=== PATIENT | male | born 1950 | race Caucasian/White ===

== ENCOUNTER 2019-01-28 09:27 | Outpatient (CLI) | payer OTHER | END 2019-01-28 23:59 | disposition home or self-care (01) | LOC: STAR 09:27 | PROVIDERS: ATTEND Neurological Surgery | DX: Z01.818 Encounter for other preprocedural examination (principal); M48.061 Spinal stenosis, lumbar region without neurogenic claudication; R94.31 Abnormal electrocardiogram [ECG] [EKG] | CPT/HCPCS: 36415; 80053; 85025; 85610; 85730; 93005 ==

== ENCOUNTER 2019-02-11 08:54 | Inpatient (IN) | payer OTHER ==
[~2019-02-11] VITALS: Ht 172.7 cm; Wt 106.9 kg
[2019-02-12 14:09] VITALS: BP 112/72
== END 2019-02-12 15:36 | disposition home or self-care (01) | DRG 517 ==
LOC: OUT 08:54 → 4NOR 15:04 → OUT 15:15 → 4NOR 15:15 → DCLOUNGE 02-12 15:25
PROVIDERS: ADMIT Neurological Surgery; ATTEND Neurological Surgery
PROC: 01NB0ZZ Release Lumbar Nerve, Open Approach (ICD-10-PCS; principal; 2019-02-11)
DX: M48.061 Spinal stenosis, lumbar region without neurogenic claudication (principal); M54.16 Radiculopathy, lumbar region; E11.9 Type 2 diabetes mellitus without complications; N40.0 Benign prostatic hyperplasia without lower urinary tract symptoms; I11.9 Hypertensive heart disease without heart failure; G47.33 Obstructive sleep apnea (adult) (pediatric); Z79.01 Long term (current) use of anticoagulants; Z98.1 Arthrodesis status; Z87.891 Personal history of nicotine dependence; Z88.5 Allergy status to narcotic agent; Z82.49 Family history of ischemic heart disease and other diseases of the circulatory system; Z79.84 Long term (current) use of oral hypoglycemic drugs; Z79.899 Other long term (current) drug therapy
CPT/HCPCS: 36415; J3490; 82962; 85610; 85730; G0378; J0690; J1100; J1815; J2250; J2704; J2710; J3010; J3480; Q0162; J7120

== ENCOUNTER 2021-02-13 08:58 | Inpatient (IN) | payer MEDICARE, OTHER ==
[~2021-02-13] VITALS: Ht 170.2 cm; Wt 87.6 kg
[~2021-02-13 08:58] MED LIST: ALLO100T30 PO; ASPI325T17 PO; ATOR10TA PO; CARV-39 PO; CARV12.52 PO; CHOL100012 PO; CYAN500T18 PO; DOFE250C PO; EZET10TA70 PO; FERR324T18 PO; GABA600T7 PO; GLIP10TA13 PO; IBUP1TAB11 PO; LISI5TAB7 PO; MAGN420T PO; METF500T17 PO; NITR0.4T28 SL; NPH,100V SQ-INSULIN; OMEP40CA8 PO; PANT40TA6 PO; RIVA20TA PO; TYLENOL PM PO
--- NOTE | 2021-02-13 09:19 | NUR ---
TASK RN NOTE: PT PRESENTS TO ED WITH CONSTANT CP X2 DAYS AND EPIGASTRIC TENDERNESS ON PALPATION. PT DENIES TAKING ANY MEDICATIONS FOR CP. HX X3 CARDIAC STENTS.
[2021-02-13] MEDS ORDERED: ASPIRIN 81 MG TABLET CHEW ONE (09:27)
[2021-02-13] MEDS ORDERED: ASPIRIN 81 MG TABLET CHEW PO ONE (09:30)
[2021-02-13] MEDS ORDERED: SODIUM CHLORIDE FLUSH 10ML SYR IVF ONE (09:30)
[2021-02-13 09:56] LABS: BASOPHILS % (AUTO) 1 % (0-1); EOSINOPHILS % (AUTO) 5 % (1-7); LYMPHOCYTES % (AUTO) 25 % (22-44); MEAN CORPUSCULAR HEMOGLOBIN 31.5 pg (27.5-34.5); MEAN CORPUSCULAR HGB CONC 35.1 g/dL (33.2-36.2); MEAN PLATELET VOLUME 8.5 fL (7.4-10.4); MONOCYTES % (AUTO) 10 % (2-9); NEUTROPHILS % (AUTO) 59 % (42-75); PLATELET COUNT 143 x10^3/uL (130-400); RED BLOOD COUNT 4.71 x10^6/uL (4.38-5.82); RED CELL DISTRIBUTION WIDTH 13.4 % (9.4-14.8)
[2021-02-13 10:06] LABS: ALBUMIN 3.4 g/dL (3.4-5.0); ANION GAP 6 mmol/L (5-15); CHLORIDE 107 mmol/L (98-107)
[2021-02-13 10:11] LABS: ALANINE AMINOTRANSFERASE 36 U/L (12-78); ALKALINE PHOSPHATASE 72 U/L (45-117); CREATININE 0.81 mg/dL (0.7-1.3); TOTAL PROTEIN 6.8 g/dL (6.4-8.2); TROPONIN I < 0.015 ng/mL (0.000-0.045)
[2021-02-13] MEDS ORDERED: SODIUM CHLORIDE FLUSH 10ML SYR IVF PRN (11:00)
--- NOTE | 2021-02-13 11:20 | NUR ---
called at 1120 for juan pablo for floor bed transfer. hernando almeida to call back to ed for report
[2021-02-13] MEDS ORDERED: HEPARIN 5,000 UNITS/ML, 1ML SQ SCH (11:30)
[2021-02-13] MEDS ORDERED: MAALOX/HYOSCYAMINE/LIDOCAINE 45 ML BTL PO ONE (11:30)
[2021-02-13] MEDS ORDERED: NITROGLYCERIN SINGLE TAB 0.4 MG SL PRN (11:30)
[2021-02-13] MEDS ORDERED: ONDANSETRON ODT 4 MG PO PRN (11:30)
[2021-02-13] MEDS ORDERED: ACETAMINOPHEN 325 MG TABLET PO PRN (11:30)
[2021-02-13] MEDS ORDERED: ONDANSETRON 2MG/ML, 2ML IVPush PRN (11:30)
--- NOTE | 2021-02-13 11:37 | NUR ---
REPORT CALLED TO DANNY PRYOR, PT TO BE TRANSPORTED VIA TECH TO FLOOR
[2021-02-13 12:11] LABS: TROPONIN I < 0.015 ng/mL (0.000-0.045)
[2021-02-13 13:22] VITALS: BP 126/82
[2021-02-13] MEDS: morphine SULFATE 10 MG/ML, 1ML IVPush PRN ×2 (13:31→14:17)
[2021-02-13] MEDS: CHOLECALCIFEROL 1,000 UNIT TABLET PO SCH (13:32)
[2021-02-13] MEDS: SODIUM CHLORIDE 0.9% 1,000 ML IV SCH (13:34)
[2021-02-13] MEDS ORDERED: NITROGLYCERIN 0.4 MG BOTTLE (25 TABS) SL ONE (14:51)
[2021-02-13 14:55] VITALS: BP 136/83
[2021-02-13] MEDS: LACTOBACILLUS CHEW TABLET PO SCH ×2 (14:57→20:24)
[2021-02-13 14:58] VITALS: BP 121/79
[2021-02-13 15:37] LABS: TROPONIN I < 0.015 ng/mL (0.000-0.045)
[2021-02-13] MEDS ORDERED: HEPARIN 5,000 UNITS/ML, 1ML IV ONE (16:00)
[2021-02-13] MEDS ORDERED: HEPARIN 5,000 UNITS/ML, 1ML IV PRN (16:00)
[2021-02-13] MEDS: INSULIN LISPRO 100 UNITS/ML, PEN SQ-INSULIN SCH ×2 (16:36→20:24)
[2021-02-13] MEDS: HEPARIN 25,000 UNITS/250ML PMX 250 ML IV PRN (16:45)
[2021-02-13 20:12] VITALS: BP 123/75
[2021-02-13] MEDS: GABAPENTIN 400 MG CAPSULE PO SCH (20:23)
[2021-02-13] MEDS: ALLOPURINOL 100 MG TABLET PO SCH (20:23)
[2021-02-13] MEDS: CARVEDILOL 25 MG TABLET PO SCH (20:23)
[2021-02-13] MEDS: metFORMIN 500 MG TABLET PO SCH (20:23)
[2021-02-13] MEDS: ATORVASTATIN 40 MG TABLET PO SCH (20:24)
[2021-02-13] MEDS: PANTOPRAZOLE 40MG TABLET PO SCH (20:24)
[2021-02-13] MEDS ORDERED: ATORVASTATIN 40 MG TABLET PO SCH (21:00)
[2021-02-14 00:25] VITALS: BP 111/65
[2021-02-14] MEDS: ASPIRIN 325 MG TABLET EC PO SCH (06:32)
[2021-02-14] MEDS: INSULIN LISPRO 100 UNITS/ML, PEN SQ-INSULIN SCH ×4 (07:00→21:00)
[2021-02-14 08:25] VITALS: BP 122/80
[2021-02-14] MEDS: SODIUM CHLORIDE 0.9% 1,000 ML IV SCH (09:06)
[2021-02-14] MEDS ORDERED: REGADENOSON 0.4 MG/5 ML SYRINGE ONE (10:14)
[2021-02-14] MEDS: GABAPENTIN 400 MG CAPSULE PO SCH ×2 (12:23→21:40)
[2021-02-14] MEDS: CYANOCOBALAMIN 1,000 MCG TABLET PO SCH (12:23)
[2021-02-14] MEDS: LACTOBACILLUS CHEW TABLET PO SCH ×3 (12:23→21:00)
[2021-02-14] MEDS: MAGNESIUM OXIDE 400 MG TABLET PO SCH (12:23)
[2021-02-14] MEDS: LISINOPRIL 5 MG TABLET PO SCH (12:23)
[2021-02-14] MEDS: CHOLECALCIFEROL 1,000 UNIT TABLET PO SCH (12:23)
[2021-02-14] MEDS: metFORMIN 500 MG TABLET PO SCH ×2 (12:23→21:34)
[2021-02-14] MEDS: CARVEDILOL 25 MG TABLET PO SCH ×2 (12:24→21:33)
[2021-02-14] MEDS ORDERED: ATOR40TA78 PO (13:31)
[2021-02-14] MEDS ORDERED: ACID1TAB7 PO (13:31)
[2021-02-14] MEDS ORDERED: INSU100I11 SQ-INSULIN (13:31)
[2021-02-14] MEDS ORDERED: ASPI81TA45 PO (13:31)
[2021-02-14 14:30] VITALS: BP 142/85
[2021-02-14] MEDS: morphine SULFATE 10 MG/ML, 1ML IVPush PRN (14:34)
[2021-02-14] MEDS: HEPARIN 25,000 UNITS/250ML PMX 250 ML IV PRN (17:25)
[2021-02-14 19:23] VITALS: BP 132/83
[2021-02-14] MEDS: ALLOPURINOL 100 MG TABLET PO SCH (21:33)
[2021-02-14] MEDS: ATORVASTATIN 40 MG TABLET PO SCH (21:34)
[2021-02-14] MEDS: PANTOPRAZOLE 40MG TABLET PO SCH (21:34)
[2021-02-15 02:51] VITALS: BP 112/70
[2021-02-15] MEDS: ASPIRIN 325 MG TABLET EC PO SCH (06:00)
[2021-02-15] MEDS: INSULIN LISPRO 100 UNITS/ML, PEN SQ-INSULIN SCH ×2 (07:00→12:20)
[2021-02-15 07:06] VITALS: BP 135/82
[2021-02-15] MEDS ORDERED: NITROGLYCERIN 0.4 MG BOTTLE (25 TABS) SL ONE (08:42)
[2021-02-15] MEDS: morphine SULFATE 10 MG/ML, 1ML IVPush PRN (08:55)
[2021-02-15] MEDS: CARVEDILOL 25 MG TABLET PO SCH (08:56)
[2021-02-15] MEDS: GABAPENTIN 400 MG CAPSULE PO SCH (08:56)
[2021-02-15] MEDS: LACTOBACILLUS CHEW TABLET PO SCH (08:56)
[2021-02-15] MEDS: metFORMIN 500 MG TABLET PO SCH (08:56)
[2021-02-15] MEDS: CYANOCOBALAMIN 1,000 MCG TABLET PO SCH (08:56)
[2021-02-15] MEDS: MAGNESIUM OXIDE 400 MG TABLET PO SCH (08:56)
[2021-02-15] MEDS: CHOLECALCIFEROL 1,000 UNIT TABLET PO SCH (08:56)
[2021-02-15] MEDS: LISINOPRIL 5 MG TABLET PO SCH (08:56)
[2021-02-15 13:58] VITALS: BP 140/89
== END 2021-02-15 15:18 | disposition home or self-care (01) | DRG 313 ==
LOC: ED 10:26 → OBSVTOIN 10:57 → INTOOBSV 10:57 → EDIP 10:57 → 5SO 13:00
PROVIDERS: ADMIT Hospitalist; ATTEND Hospitalist
DX: R07.89 Other chest pain (principal); I25.110 Atherosclerotic heart disease of native coronary artery with unstable angina pectoris; E78.5 Hyperlipidemia, unspecified; G47.30 Sleep apnea, unspecified; I10 Essential (primary) hypertension; Z96.611 Presence of right artificial shoulder joint; M10.9 Gout, unspecified; Z96.652 Presence of left artificial knee joint; E66.9 Obesity, unspecified; R56.9 Unspecified convulsions; E11.649 Type 2 diabetes mellitus with hypoglycemia without coma; Z86.73 Personal history of transient ischemic attack (TIA), and cerebral infarction without residual deficits; I25.2 Old myocardial infarction; Z95.5 Presence of coronary angioplasty implant and graft; Z90.49 Acquired absence of other specified parts of digestive tract; Z68.30 Body mass index [BMI] 30.0-30.9, adult; Z88.5 Allergy status to narcotic agent
CPT/HCPCS: 36415; 71045; 78452; 80053; 82962; 83036; 83690; 84484; 85025; 85520; 93005; 93017; 96372; 99285; G0378; J1644; J2785; A9502; C9898; J1815; J2270; J7030